=== PATIENT | male | born 1970 | race African-American/Black ===

== ENCOUNTER 2016-12-16 20:15 | Emergency (ER) | payer OTHER ==
[~2016-12-16] VITALS: Ht 167.6 cm; Wt 80.6 kg
[2016-12-16 20:19] VITALS: TEMP 36.6; Ht 167.6 cm; Wt 80.6 kg
[2016-12-16] MEDS ORDERED: PERCOCET HOME PACK PO STA (20:30)
[2016-12-16] MEDS ORDERED: OXYCODONE/ACETAMINOPHEN 5-325 TAB PO STA (20:30)
[2016-12-16] MEDS ORDERED: ASPI325T45 PO (20:44)
[2016-12-16] MEDS ORDERED: IBUP-1050 PO (20:44)
[2016-12-16] MEDS ORDERED: OXYC-57 PO (21:21)
--- NOTE | 2016-12-16 21:23 | EMERGENCY ROOM VISIT NOTE ---
History First contact with patient: 20:25 Chief Complaint: BURN (MINOR) Stated Complaint: BURN ON HAND History of Present Illness The patient is a 46 year old male who presents to the Emergency Room via private vehicle with complaints of "burn on right hand". The patient states that around 8:15 this evening, he was working at [employer], as he was taking down a good from the flattop, he slipped fell and struck his right hand onto the grill top which was approximately 378F. He states that he cleanse the region and put burn gauze and cream on the hand. He notes that the flattop was dirty with chicken, butter and bread. He is left-handed. He believes his tetanus is up-to-date, and declines further immunization. Review of Systems A complete 6-point Review of Systems was discussed with the patient, with pertinent positives and negatives listed in the History of Present Illness. All remaining Review of Systems questions can be considered negative unless otherwise specified. Past Medical/Surgical History No pertinent. Family History No pertinent. Social History Smoking Status: Never Smoker Patient is currently employed at 2 jobs. Current/Historical Medications Scheduled Aspirin (Aspirin), 650 MG PO PRN UD Scheduled PRN Ibuprofen (Advil), 400 MG PO Q6 PRN for Heartburn Oxycodone/Acetaminophen 5MG/325MG (Percocet 5MG/325MG), 1 TAB PO Q4H PRN for Pain Physical Exam Vital Signs Date Time Temp Pulse Resp B/P (MAP) Pulse Ox O2 Delivery O2 Flow Rate FiO2 12/16/16 21:46 85 18 164/94 96 12/16/16 20:19 36.6 80 18 176/103 95 Room Air Physical Exam VITAL SIGNS - Vital signs and nursing notes were reviewed. Patient is afebrile , hypertensive at 176/103, nontoxic tachycardic and saturating on room air 95%. GENERAL -46-year-old male appearing his stated age who is in no acute distress. Communicates well with provider and answers questions appropriately. SKIN - on the palmar aspect of the right hand, digits as well as distal wrist there is first-degree and second-degree smiley consistent with skin sloughing, as well as blistering. The skin is pink, and blanching with good cap refill. EXTREMITIES - No clubbing or peripheral cyanosis. No pretibial edema present. Full range of motion of the right hand. He is neurovascularly intact in this region. Medical Decision & Procedures Medications Administered Medications (Trade) Dose Ordered Sig/Lucy Route Start Time Stop Time Status Last Admin Dose Admin Oxycodone/ Acetaminophen (Percocet 5-325mg Tab) 1 tab NOW STAT PO 12/16/16 20:30 12/16/16 20:31 DC 12/16/16 20:30 1 TAB Oxycodone/ Acetaminophen (Percocet 5/ 325MG Home Pack) 1 homepack UD STAT PO 12/16/16 20:30 12/16/16 20:31 DC 12/16/16 21:05 1 HOMEPACK Medical Decision Patient was seen and evaluated as above. After obtaining a thorough history and physical examination it was decided that because the location of the burn, I will consult the [facility] burn center. At 9:10 PM, I spoke with Dr. Colvin the on-call burn surgeon. He recommended bacitracin, and Xeroform gauze to the area with changes daily to the dressing. He recommends follow-up with Dr. De Anda/wound care center on Monday. At this time I will enlist the help of our case liner, who spoke with the patient regarding follow-up. Because this was a work-related injury, the patient is to call his employer as soon as possible, and discuss who is on there proved panel for follow-up. He was certainly given the follow-up information for Dr. De Anda and the wound care center by our family service caseworker. While here, he was given Percocet for his pain. The wounds were thoroughly cleansed, and I personally dressed with Xeroform dressing with bacitracin, as well as Telfa overtop to absorb any residual dressing and secured these with Johann wrap. Patient tolerated this well. He declined tetanus immunization. At this time I believe he is stable for outpatient management. He was given a short-term prescription for the Percocet as well as a home pack secondary to his pharmacy being closed at this time. He was educated upon worrisome symptoms which return, had questions or discharge, and was discharged home in good condition. He was instructed to also follow-up with his family doctor regarding today's visit. In evaluation treatment this patient following differential diagnoses were entertained: First-degree burn, second-degree burn, third-degree burn, among others. The patient at this time has a non-circumferential first and superficial second-degree burn of the palmar aspect of his right hand and digits. [facility] Monitoring Program Search Results: patient reviewed within database, no issues identified Blood Pressure Screening Patient's blood pressure: Elevated blood pressure Blood pressure disposition: Elevated BP felt to be situational, Referred to PCP Impression Primary Impression: Burn injury Departure Information Dispostion Home / Self-Care Condition GOOD Prescriptions Oxycodone/Acetaminophen 5MG/325MG (PERCOCET 5MG/325MG) Tab 1 TAB PO Q4H Y for Pain, #18 TAB For Initial Treatment Prov: Richie Osborn PA-C 12/16/16 Referrals Starr Parsons (PCP) Yohana De Anda MD Patient Instructions My [facility] Additional Instructions You have been treated in the Emergency Department today for a burn on your right hand. You have received pain medicine in the emergency department which impairs your ability to operate a vehicle. It is illegal for you to drive after receiving these medicines. You have been prescribed PERCOCET to be used for pain control. This is a narcotic medication. You cannot drive or consume alcohol while on this medicine. This medicine should only be used for pain that cannot be controlled with [id number] pain medicines. No TYLENOL WITH THIS IT ALREADY CONTAINS THIS> You have been given packets of bacitracin. This is an antibiotic ointment that will help to prevent the development of an infection at the site of your burn. After you have cleaned the burn site with soap and water and dried the area thoroughly, you should apply a layer of the ointment to the site of the burn with clean gauze or a clean tongue depressor. You should apply a dressing over the site of the burn to keep it clean from contamination. Look for signs of infection of the wound including: increased pain, swelling, foul discharge, streaking, or increased temperature. If any of these are noticed you should return to the Emergency Department for further assessment and treatment. For pain control, you can use the following [id number] medicines (if >12 yo): - Regular strength (200 mg/tab) Advil (ibuprofen) 1-2 tabs every 4-6 hours as needed. Do not exceed a dose of 3200 mg per day. Please call your employer to discuss Workmen's Compensation follow-up. I would like you to follow up with either Dr. De Anda, or the wound care center as this was recommended by Dr. Colvin of [facility] burn clinic. Please call your employer first thing Monday morning to discuss if this is part of their panel. Please talk with your employer as soon as possible. Dr. De Anda 's contact is listed. If you have any trouble please call back here at Return to the emergency department if your symptoms worsen despite treatment course outlined above.
[2016-12-16 21:46] VITALS: BP 164/94; PULSE 85; O2SAT 96
== END 2016-12-16 21:47 | disposition home or self-care (01) ==
LOC: C.EDB 20:17 → C.EDD 21:47
DX: T23.291A Burn of second degree of multiple sites of right wrist and hand, initial encounter (principal); T23.231A Burn of second degree of multiple right fingers (nail), not including thumb, initial encounter; X15.0XXA Contact with hot stove (kitchen), initial encounter; W01.190A Fall on same level from slipping, tripping and stumbling with subsequent striking against furniture, initial encounter; Y99.0 Civilian activity done for income or pay; Y92.511 Restaurant or cafe as the place of occurrence of the external cause; Y93.G9 Activity, other involving cooking and grilling

== ENCOUNTER → 2016-12-30 | Outpatient (CLI) | payer OTHER ==
[~2016-12-30] MED LIST: ASPI325T45 PO; IBUP-1050 PO; OXYC-57 PO
[2016-12-30 18:20] LABS: URINE APPEARANCE CLOUDY (CLEAR); URINE BILIRUBIN NEG (NEG); URINE COLOR YELLOW; URINE EPITHELIAL CELL AUTO 0-5 /lpf (0-5); URINE NITRITE NEG (NEG); URINE SPECIFIC GRAVITY 1.022 (1.000-1.030); UROBILINOGEN NEG (NEG)
[2016-12-30 18:22] LABS: MANUAL MICROSCOPIC REQUIRED? NO; REVIEW REQ? NO
[2016-12-30 18:35] LABS: BLOOD UREA NITROGEN 18 mg/dl (7-18); BUN/CREATININE RATIO 15.2 (10-20); CALCIUM 9.4 mg/dl (8.5-10.1); CARBON DIOXIDE 30 mmol/L (21-32); CHLORIDE 106 mmol/L (98-107); CHOLESTEROL 219 mg/dl (0-200); GLUCOSE 97 mg/dl (70-99); POTASSIUM 4.1 mmol/L (3.5-5.1); SODIUM 141 mmol/L (136-145); TRIGLYCERIDES 97 mg/dl (0-150); VERY LOW DENSITY LIPOPROT CALC 19 mg/dl
[2016-12-30 18:38] LABS: CHOLESTEROL/HDL RATIO 4.7; HDL CHOLESTEROL 47 mg/dl; LDL CHOLESTEROL CALCULATED 153 mg/dl
== END | disposition home or self-care (01) ==
LOC: C.LABMFLN 12:04
PROVIDERS: ATTEND Family Medicine
DX: I10 Essential (primary) hypertension (principal); Z13.220 Encounter for screening for lipoid disorders